=== PATIENT | female | born 1975 | race Caucasian/White ===

== ENCOUNTER 2019-09-10 08:22 | Emergency (ER) | payer SELFPAY ==
[~2019-09-10] VITALS: Ht 162.6 cm; Wt 113.1 kg
[2019-09-10 08:22] VITALS: BP 152/89
[2019-09-10] MEDS ORDERED: CLIN150C14 PO (08:39)
[2019-09-10] MEDS ORDERED: HYDR-3165 PO (08:39)
[2019-09-10] MEDS ORDERED: CHLO15MO2 PO (08:39)
--- NOTE | 2019-09-10 08:39 | PHYS DOC ---
Past History Past Medical History: Anxiety Past Surgical History: No Surgical History Smoking: Cigarettes Alcohol Use: None Drug Use: None Adult General Chief Complaint Chief Complaint: DENTAL PROBLEM HPI HPI 43-year-old female presents with left second molar pain and swelling upon waking this morning. Patient reports history of known dental don which her dentist had wanted to pull approximately 1 year ago. Patient reports he was not able to pull it at the time of pulling some other teeth and patient has not followed up to have it removed. Reports taking [id number] ibuprofen this morning without improvement. Patient denies fever or chills. Denies . Review of Systems Review of Systems Constitutional: Denies fever or chills Eyes: Denies redness or eye pain HENT: Denies nasal congestion; reports toothache and facial swelling Respiratory: Denies cough or shortness of breath Cardiovascular: Denies chest pain or palpitations GI: Denies abdominal pain, nausea, or vomiting Integument: Denies rash or skin lesions Neurologic: Denies headache, focal weakness or sensory changes Complete systems were reviewed and found to be within normal limits, except as documented in this note. Current Medications Current Medications Current Medications Medications (Trade) Dose Ordered Sig/Rachel Start Time Stop Time Status Last Admin Dose Admin Clindamycin HCl (Cleocin) 450 mg 1X ONCE 09/10/19 08:45 09/10/19 08:46 UNV Dexamethasone (Decadron) 10 mg 1X ONCE 09/10/19 08:45 09/10/19 08:46 UNV Allergies Allergies Allergies Coded Allergies Type Severity Reaction Last Updated Verified Penicillins Allergy Unknown 09/10/19 Yes erythromycin base Allergy Unknown 09/10/19 Yes Physical Exam Physical Exam Constitutional: Well developed, well nourished, no acute distress, non-toxic appearance HENT: Normocephalic, atraumatic, oropharynx moist, poor dentition throughout, multiple dental extractions previously performed, left second maxillary molar with large dental decay and gingival swelling, no fluctuant mass appreciated Eyes: Conjunctiva normal, no discharge Neck: Normal range of motion, no tenderness, supple, no lymphadenopathy appreciated Lungs & Thorax: No respiratory distress, equal chest rise and fall Skin: Warm, dry, no erythema, no rash Extremities: No deformity, ROM intact Neurologic: Alert and oriented X 3, speech normal Psychologic: Affect normal, judgment normal EKG EKG [] Radiology/Procedures Radiology/Procedures [] Course & Med Decision Making Course & Med Decision Making Patient presents with dentalgia and facial swelling to left mandibular region upon waking this morning. History of known dental decay. Afebrile. Patient reports taking ibuprofen prior to arrival without improvement of symptoms. Symptomatic steroid provided. Empiric antibiotic initiated. A small prescription for other pain medication provided. [facility] report obtained and last narcotic prescription from January 2019. Patient stable for discharge with outpatient follow-up with PCP/dentist. Dental resource sheet provided. Discussed findings and plan with patient, who a cknowledges understanding and agreement. Dragon Disclaimer Dragon Disclaimer This electronic medical record was generated, in whole or in part, using a voice recognition dictation system. Departure Departure: Impression: Primary Impression: Dentalgia Additional Impression: Periapical abscess Disposition: HOME, SELF-CARE Condition: STABLE Referrals: PCP,NO (PCP) Patient Instructions: Dental Abscess, Toothache-Brief Scripts Chlorhexidine Gluconate (PERIDEX) 15 Ml Mouthwash 15 ML PO BID for Dental infection for 30 Days, #500 ML 0 Refills Prov: ALLEN DE DO 09/10/19 Clindamycin Hcl (CLINDAMYCIN HCL) 150 Mg Capsule 3 CAP PO TID for Dental Infection for 7 Days, #63 CAP Prov: ALLEN DE DO 09/10/19 Hydrocodone Bit/Acetaminophen (NORCO 5-325 TABLET) 1 Each Tablet 0.5-1 TAB PO Q6HRS PRN for PAIN, #10 TAB Prov: ALLEN DE DO 09/10/19 Problem Qualifiers ALLEN DE DO Sep 10, 2019 08:39
[2019-09-10] MEDS ORDERED: CLINDAMYCIN HCL 150 MG CAPSULE PO ONE (08:45)
[2019-09-10] MEDS ORDERED: DEXAMETHASONE 4 MG TABLET PO ONE (08:45)
== END 2019-09-10 08:50 | disposition home or self-care (01) ==
LOC: ER 08:22
DX: K04.7 Periapical abscess without sinus (principal); K02.9 Dental caries, unspecified; F17.210 Nicotine dependence, cigarettes, uncomplicated; Z88.0 Allergy status to penicillin; Z88.1 Allergy status to other antibiotic agents
CPT/HCPCS: 99283; J8540

== ENCOUNTER 2020-07-14 09:45 | Emergency (ER) | payer SELFPAY ==
[~2020-07-14] VITALS: Ht 162.6 cm; Wt 113.1 kg
[~2020-07-14 09:45] MED LIST: CHLO15MO2 PO; CLIN150C15 PO; HYDR-3165 PO
[2020-07-14] MEDS ORDERED: IBUPROFEN 400 MG TABLET. PO ONE (11:45)
[2020-07-14] MEDS ORDERED: IOHEXOL 300 MG/ML 75 ML VIAL. IV ONE (11:45)
[2020-07-14] MEDS ORDERED: CLINDAMYCIN 600MG PREMIX 50 ML IV ONE (11:45)
--- NOTE | 2020-07-14 11:45 | PHYS DOC ---
Past History Past Medical History: Anxiety Past Surgical History: No Surgical History, Oophorectomy, Tubal ligation Smoking: Cigarettes Alcohol Use: None Drug Use: None General Adult EDM: Chief Complaint: DENTAL PROBLEM HPI: HPI: This is a pleasant 44-year-old female presented to the emergency department today with dental pain. The pain has been present for a more than a week however the pain is worse last night. She is not had any fevers. She does have swelling. She is not having tongue swelling. She is able to swallow her secretions without difficulty. The pain is a throbbing aching moderate pain which is worse at night and improved in the mornings. Review of systems negative for chest pain shortness of breath vomiting fevers chills. All other review of systems negative. ED course: 44-year-old female presenting with left tooth pain with some swelling of the jaw. I ordered a CT of the neck and some IV antibiotics with some blood work however the patient had left prior to receiving these medications. She also left prior to getting the imaging. The patient left AMA. She can return if she has any concerns. I did inform her on my initial evaluation that she will need to see a dentist today or tomorrow. It was my plan to give her antibiotics to go home with. Unfortunately I was unable to do this because she left. Current Medications: Current Meds: Current Medications Medications (Trade) Dose Ordered Sig/Rachel Start Time Stop Time Status Last Admin Dose Admin Clindamycin Phosphate 50 ml @ 100 mls/hr 1X ONCE 07/14/20 11:45 07/14/20 12:14 Fentanyl Citrate (Fentanyl 2ml Vial) 25 mcg 1X ONCE 07/14/20 11:45 07/14/20 11:46 Ibuprofen (Motrin) 400 mg 1X ONCE 07/14/20 11:45 07/14/20 11:46 UNV Iohexol (Omnipaque 300 Mg/ml) 75 ml 1X ONCE 07/14/20 11:45 07/14/20 11:46 Allergies: Allergies: Allergies Coded Allergies Type Severity Reaction Last Updated Verified Penicillins Allergy Unknown 09/10/19 Yes erythromycin base Allergy Unknown 09/10/19 Yes Physical Exam: PE: Constitutional: Well developed, well nourished, no acute distress, non-toxic appearance. [] HENT: Normocephalic, atraumatic, bilateral external ears normal, oropharynx moist, no oral exudates, nose normal. Patient has swelling below the left anterior tooth. No tenderness palpation of the soft tissues of the neck. No crepitus to palpation. Tongue is not swollen. Patient is swallowing secretions without difficulty. Eyes: PERRLA, EOMI, conjunctiva normal, no discharge. [] Neck: Normal range of motion, no tenderness, supple, no stridor. [] Cardiovascular:Heart rate regular rhythm, no murmur [] Lungs & Thorax: Bilateral breath sounds clear to auscultation [] Abdomen: Bowel sounds normal, soft, no tenderness, no masses, no pulsatile masses. [] Skin: Warm, dry, no erythema, no rash. [] Back: No tenderness, no CVA tenderness. [] Extremities: No tenderness, no cyanosis, no clubbing, ROM intact, no edema. [] Neurologic: Alert and oriented X 3, normal motor function, normal sensory function, no focal deficits noted. [] Psychologic: Affect normal, judgement normal, mood normal. [] Current Patient Data: Vital Signs: Vital Signs Date Time Temp Pulse Resp B/P (MAP) Pulse Ox O2 Delivery O2 Flow Rate FiO2 07/14/20 09:51 98.5 88 20 137/94 (108) 98 Room Air EKG: EKG: [] Radiology/Procedures: Radiology/Procedures: [] Heart Score: Risk Factors: Risk Factors: DM, Current or recent (<one month) smoker, HTN, HLP, family history of CAD, obesity. Risk Scores: Score 0 - 3: 2.5% MACE over next 6 weeks - Discharge Home Score 4 - 6: 20.3% MACE over next 6 weeks - Admit for Clinical Observation Score 7 - 10: 72.7% MACE over next 6 weeks - Early Invasive Strategies Course & Med Decision Making: Course & Med Decision Making Pertinent Labs and Imaging studies reviewed. (See chart for details) [] Dragon Disclaimer: [place] Disclaimer: This electronic medical record was generated, in whole or in part, using a voice recognition dictation system. Departure Departure: Impression: Primary Impression: Dentalgia Disposition: 07 AMA/ELOPED/LWBS Condition: GUARDED Referrals: PCP,NO (PCP) PAULINO MALIK MD Jul 14, 2020 11:45
== END 2020-07-14 11:45 | disposition left against medical advice (07) ==
LOC: ER 09:45
DX: K08.89 Other specified disorders of teeth and supporting structures (principal); R22.0 Localized swelling, mass and lump, head; F41.9 Anxiety disorder, unspecified; F17.210 Nicotine dependence, cigarettes, uncomplicated; Z88.0 Allergy status to penicillin; Z88.1 Allergy status to other antibiotic agents
CPT/HCPCS: 99281